=== PATIENT | male | born 1970 | race Caucasian/White ===

== ENCOUNTER 2018-04-01 15:59 | Inpatient (IN) ==
[2018-04-01] MEDS ORDERED: ZOFRAN INJ 4 MG VIAL IVP ONE (16:30)
[2018-04-01] MEDS ORDERED: ZOFRAN INJ 4 MG VIAL ONE (16:32)
[2018-04-01] MEDS: NS 1000 ML 1,000 ML IV SCH ×2 (16:37→18:40)
[2018-04-01 16:47] LABS: EOSINOPHILS # (AUTO) 0.1 x10^3/uL (0.0-0.2); RED CELL DISTRIBUTION WIDTH 14.1 % (11.6-16.5)
--- NOTE | 2018-04-01 16:50 | DR.EXTPAIN ---
HPI - Time seen Time seen: 16:38 - PCP Primary Care Physician: marcellus - Complaint/Symptoms Chief Complaint Doctor Comments: Onset of epigastric pain since this a.m. It was described as throbbing in nature. He rated this as a 10 over 10 at its most intense. He was nauseous. There has been no trauma to the abdomen. He gave a hx. of pancreatitis and triglyceridemia x > 18 hrs. At the time I'm seeing him, he states that he is pain free. Chief Complaint:: pt stated he has had pancreatitis before and he stated this morning he started hurting again and thinks it has come back. - Nurses notes reviewed Nurses Notes Review: Yes - Source History Provided: Patient - Mode of arrival Mode of Arrival: Ambulatory - Timing Onset of Chief Complaint: 04/01/18 PMH - PMH Past Medical History: Yes Past Medical History: Diabetes, Dyslipidemia, Hypertension Past Surgical History: No - Family History History of Family Medical Conditions: Yes Family Medical History: Diabetes Mellitus - Social History Does patient currently use any type of tobacco product: No Have you used tobacco products in the last 12 months: No Type of Tobacco Use: None Does any household member use tobacco: No Alcohol Use: Rarely Do you use any recreational Drugs:: No Lives With: Family Lives Where: Home - infectious screening In the last 2 months have you had wt loss of >10#?: NO Have you had fever, night sweats or hemotysis?: No Have you traveled outside the country in the last 6 months?: No Isolation: Standard ROS - Review of Systems Constitutional: No Symptoms Reported Eyes: No Symptoms Reported ENTM: No Symptoms Reported Respiratoy: No Symptoms Reported Cardiovascular: No Symptoms Reported Gastrointestinal/Abdominal: Abdominal Pain (epigastric ), Nausea Genitourinary: No Symptoms Reported Neurological: No Symptoms Reported Musculoskeletal: No Symptoms Reported Integumentary: No Symptoms Reported Hematologic/Lymphatic: No Symptoms Reported Endocrine: No Symptoms Reported Psychiatric: No Symptoms Reported All Other Systems: Reviewed and Negative PE - General Limitations: No Limitations General Appearance: Alert, In No Apparent Distress - Head Head Exam: Normal Inspection - Eyes Eye exam: Normal Appearance - ENT ENT Exam: Normal Exam - Neck Neck Exam: Normal Inspection - Chest Chest Inspection: Normal Inspection - Respiratory Respiratory Exam: Normal Lung Sounds Bilat - Cardiovascular Cardiovascular Exam: Regular Rate, Normal Rhythm, Normal Heart Sounds, +S1, +S2 - Abdominal Exam Abdominal Exam: Normal Inspection, Normal Bowel Sounds, Soft - Extremities Extremities Exam: Normal Inspection - Back Back Exam: Normal Inspection - Neurological Neurological Exam: Alert, Oriented X3, CN II-XII Intact - Psychiatric Psychiatric Exam: Normal Affect, Normal Mood - Skin Skin Exam: Warm, Dry, Intact, Normal Color - Vital Signs Vitals: Temperature 98.3 F Pulse Rate 107 Respiratory Rate 18 Blood Pressure [Right Arm] 115/68 Blood Pressure [Left Arm] 145/84 Blood Pressure 113/76 O2 Sat by Pulse Oximetry 96 ROR - Labs Reviewed Result Diagrams: 04/01/18 16:30 04/01/18 16:30 - Labs Reviewed Laboratory: WBC 13.8 X10^3/uL (3.6-10.0) H 04/01/18 16:30 RBC 5.08 X10^6/uL (4.7-6.0) 04/01/18 16:30 Hgb 15.2 g/dL (13.5-18.0) 04/01/18 16:30 Hct 40.7 % (42.0-54.0) L 04/01/18 16:30 MCV 80.0 fL (80.0-100.0) 04/01/18 16:30 MCH 29.9 pg (27.0-34.0) 04/01/18 16:30 MCHC 37.4 g/dL (33.0-35.0) H 04/01/18 16:30 RDW 14.1 % (11.6-16.5) 04/01/18 16:30 Plt Count 267 X10^3/uL (150.0-450.0) 04/01/18 16:30 Plt Count Comment Adequate (ADEQUATE) 04/01/18 16:30 MPV 9.1 fL (7.4-11.0) 04/01/18 16:30 Neut % (Auto) 76.4 % (42.0-75.0) H 04/01/18 16:30 Lymph % (Auto) 17.9 % (21.0-51.0) L 04/01/18 16:30 [place] % (Auto) 4.4 % (0.0-13.0) 04/01/18 16:30 Eos % (Auto) 0.5 % (0.9-2.9) L 04/01/18 16:30 Baso % (Auto) 0.8 % (0.2-1.0) 04/01/18 16:30 Neut # (Auto) 10.6 x10^3/uL (2.2-4.8) H 04/01/18 16:30 Lymph # (Auto) 2.5 X10^3/uL (1.3-2.9) 04/01/18 16:30 [place] # (Auto) 0.6 x10^3/uL (0.3-0.8) 04/01/18 16:30 Eos # (Auto) 0.1 x10^3/uL (0.0-0.2) 04/01/18 16:30 Baso # (Auto) 0.1 X10^3/uL (0.0-0.1) 04/01/18 16:30 Absolute Nucleated RBC 0.2 /100WBC 04/01/18 16:30 Plt Morphology Comment Normal (NORMAL) 04/01/18 16:30 RBC Morphology Abnormal (NORMAL) 04/01/18 16:30 Anisocytosis 1+ A 04/01/18 16:30 Macrocytosis 2+ A 04/01/18 16:30 Sodium 122 mmol/L (136-145) L* 04/01/18 16:30 Corrected Sodium 134 mmol/L (136-145) L 04/01/18 16:30 Potassium 4.6 mmol/L (3.5-5.1) 04/01/18 16:30 Chloride 87 mmol/L (98-107) L 04/01/18 16:30 Carbon Dioxide 24.9 mmol/L (21-32) 04/01/18 16:30 BUN 10 mg/dL (7-18) 04/01/18 16:30 Creatinine 1.25 mg/dL (0.70-1.30) 04/01/18 16:30 Est GFR (MDRD) Af Amer > 60 (>60) 04/01/18 16:30 Est GFR (MDRD) Non-Af > 60 (>60) 04/01/18 16:30 Glucose 585 mg/dL (65-99) H* 04/01/18 16:30 Calcium 9.2 mg/dL (8.5-10.1) 04/01/18 16:30 Corrected Calcium 10.3 mg/dL (8.5-10.1) H 04/01/18 16:30 Total Bilirubin 2.20 mg/dL (0.2-1.0) H 04/01/18 16:30 AST 20.4 Units/L (15-37) 04/01/18 16:30 ALT 33.6 Units/L (12-78) 04/01/18 16:30 Alkaline Phosphatase 69 Units/L (46-116) 04/01/18 16:30 Total Protein 6.8 g/dL (6.4-8.2) 04/01/18 16:30 Albumin 2.6 g/dL (3.4-5.0) L 04/01/18 16:30 Globulin 4.2 g/dL (2.5-4.5) 04/01/18 16:30 Albumin/Globulin Ratio 0.6 Ratio (1.1-2.1) L 04/01/18 16:30 Amylase 93 Units/L (25-115) 04/01/18 16:30 Lipase 1903 Units/L (73-393) H 04/01/18 16:30 - Diagnosis Discharge Problem: Pancreatitis, Hypertriglyceridemia, Type 2 diabetes mellitus, uncontrolled, Hyponatremia - Discharge Plan Disposition: ADMITTED INPATIENT Condition: Stable - Follow ups/Referrals Follow ups/Referrals: CAMILLE BECERRIL [Primary Care Provider] - 3 days - Instructions Instructions: Acute Pancreatitis
[2018-04-01 17:14] LABS: LIPASE 1903 Units/L (73-393)
[2018-04-01 17:26] LABS: BASOPHILS # (AUTO) 0.1 X10^3/uL (0.0-0.1); BASOPHILS % (AUTO) 0.8 % (0.2-1.0); EOSINOPHILS % (AUTO) 0.5 % (0.9-2.9); HEMATOCRIT 40.7 % (42.0-54.0); HEMOGLOBIN 15.2 g/dL (13.5-18.0); LYMPHOCYTES # (AUTO) 2.5 X10^3/uL (1.3-2.9); LYMPHOCYTES % (AUTO) 17.9 % (21.0-51.0); MEAN CORPUSCULAR HEMOGLOBIN 29.9 pg (27.0-34.0); MEAN CORPUSCULAR HGB CONC 37.4 g/dL (33.0-35.0); MEAN PLATELET VOLUME 9.1 fL (7.4-11.0); MONOCYTES # (AUTO) 0.6 x10^3/uL (0.3-0.8); MONOCYTES % (AUTO) 4.4 % (0.0-13.0); NEUTROPHILS # (AUTO) 10.6 x10^3/uL (2.2-4.8); NEUTROPHILS % (AUTO) 76.4 % (42.0-75.0); PLATELET COUNT 267 X10^3/uL (150.0-450.0); RED BLOOD COUNT 5.08 X10^6/uL (4.7-6.0); WHITE BLOOD COUNT 13.8 X10^3/uL (3.6-10.0)
[2018-04-01 17:40] LABS: eGFR NON BLACK RACES > 60 (>60)
[2018-04-01] MEDS ORDERED: DILAUDID INJ IVP ONE (17:42)
[2018-04-01] MEDS ORDERED: DILAUDID INJ ONE (17:43)
[2018-04-01 17:48] LABS: AMYLASE 93 Units/L (25-115)
[2018-04-01 17:49] LABS: ALBUMIN 2.6 g/dL (3.4-5.0); ALKALINE PHOSPHATASE 69 Units/L (46-116); BLOOD UREA NITROGEN 10 mg/dL (7-18)
[2018-04-01 17:51] LABS: CHLORIDE 87 mmol/L (98-107); COR NA(FOR HYPERGLY) 134 mmol/L (136-145)
[2018-04-01 17:55] LABS: SODIUM 122 mmol/L (136-145)
[2018-04-01] MEDS ORDERED: HumuLIN R SUBCUT ONE (18:05)
[2018-04-01] MEDS ORDERED: HumuLIN R ONE (18:06)
[2018-04-01 18:15] LABS: PLATELET MORPHOLOGY COMMENT NORMAL (NORMAL)
[2018-04-01 18:16] LABS: ANISOCYTOSIS 1+
[2018-04-01 18:34] LABS: CARBON DIOXIDE 24.9 mmol/L (21-32)
[2018-04-01 18:36] LABS: COR CA(FOR HYPOALB) 10.3 mg/dL (8.5-10.1)
[2018-04-01 18:39] LABS: ALANINE AMINOTRANSFERASE 33.6 Units/L (12-78); ASPARTATE AMINO TRANSFERASE 20.4 Units/L (15-37); CALCIUM 9.2 mg/dL (8.5-10.1); CREATININE 1.25 mg/dL (0.70-1.30)
[2018-04-01 18:40] LABS: TOTAL PROTEIN 6.8 g/dL (6.4-8.2)
[2018-04-01] MEDS ORDERED: SNACK - Diabetic Appropriate PO SCH (20:00)
[2018-04-01] MEDS ORDERED: ZOFRAN INJ 4 MG VIAL IVP PRN (20:46)
[2018-04-01] MEDS ORDERED: HumuLIN R SUBCUT PRN (20:46)
[2018-04-01] MEDS ORDERED: PRAVACHOL PO SCH (21:00)
[2018-04-01] MEDS: DILAUDID INJ IVP PRN (23:57)
[2018-04-02] MEDS: NS 1000 ML 1,000 ML IV SCH ×2 (01:43→03:50)
[2018-04-02 06:11] VITALS: BMI 31.5
[2018-04-02] MEDS ORDERED: JANUVIA PO SCH (07:00)
[2018-04-02] MEDS ORDERED: GLUCOPHAGE PO SCH (07:00)
[2018-04-02] MEDS ORDERED: PATIENT'S HOME MEDICATION (Sitagliptin-Metformin [Janumet] 1 TAB) PO SCH (07:00)
[2018-04-02 07:25] LABS: BASOPHILS # (AUTO) 0.1 X10^3/uL (0.0-0.1); BASOPHILS % (AUTO) 1.4 % (0.2-1.0); EOSINOPHILS # (AUTO) 0.1 x10^3/uL (0.0-0.2); HEMATOCRIT 35.3 % (42.0-54.0); HEMOGLOBIN 12.6 g/dL (13.5-18.0); LYMPHOCYTES % (AUTO) 31.9 % (21.0-51.0); MEAN CORPUSCULAR HEMOGLOBIN 28.6 pg (27.0-34.0); MEAN CORPUSCULAR HGB CONC 35.6 g/dL (33.0-35.0); MEAN CORPUSCULAR VOLUME 80.3 fL (80.0-100.0); MONOCYTES # (AUTO) 0.6 x10^3/uL (0.3-0.8); MONOCYTES % (AUTO) 6.1 % (0.0-13.0); NEUTROPHILS # (AUTO) 5.6 x10^3/uL (2.2-4.8); NEUTROPHILS % (AUTO) 59.6 % (42.0-75.0); PLATELET COUNT 192 X10^3/uL (150.0-450.0); RED BLOOD COUNT 4.39 X10^6/uL (4.7-6.0); RED CELL DISTRIBUTION WIDTH 14.7 % (11.6-16.5); WHITE BLOOD COUNT 9.3 X10^3/uL (3.6-10.0)
[2018-04-02] MEDS: DILAUDID INJ IVP PRN (07:32)
[2018-04-02 07:38] LABS: PLATELET MORPHOLOGY COMMENT NORMAL (NORMAL)
[2018-04-02 07:39] LABS: ANISOCYTOSIS SLIGHT
[2018-04-02 08:09] LABS: BLOOD UREA NITROGEN 13 mg/dL (7-18); CARBON DIOXIDE 18.1 mmol/L (21-32); CHLORIDE 93 mmol/L (98-107); SODIUM 126 mmol/L (136-145)
[2018-04-02 08:10] LABS: COR NA(FOR HYPERGLY) 133 mmol/L (136-145)
[2018-04-02 08:20] LABS: LIPASE 825 Units/L (73-393)
[2018-04-02] MEDS ORDERED: TRICOR TAB 160 MG PO SCH (09:00)
[2018-04-02] MEDS ORDERED: NORVASC TAB 10 MG PO SCH (09:00)
[2018-04-02 09:34] LABS: eGFR NON BLACK RACES > 60 (>60)
[2018-04-02 09:36] LABS: AMYLASE 49.2 Units/L (25-115); CREATININE 1.14 mg/dL (0.70-1.30)
[2018-04-02 12:35] VITALS: BP 123/58
[2018-04-02] MEDS: ZESTORETIC 20/25 MG PO SCH ×2 (12:36→12:38)
== END 2018-04-02 13:03 | disposition left against medical advice (07) | DRG 439 ==
LOC: ER 15:59 → MED/SURG 20:04
PROVIDERS: ADMIT Obstetrics & Gynecology Obstetrics; ATTEND Internal Medicine
DX: K85.80 Other acute pancreatitis without necrosis or infection; E11.65 Type 2 diabetes mellitus with hyperglycemia; E87.1 Hypo-osmolality and hyponatremia; E78.1 Pure hyperglyceridemia
CPT/HCPCS: 36415; 80048; 80053; 82150; 83690; 85025; 96365; 96367; 96372; 96374; 96375; 99282; 99284; A4216; A4222; J1170; J1815; J2405; J7030

== ENCOUNTER 2019-01-23 00:35 | Inpatient (IN) ==
[2019-01-23] MEDS ORDERED: NS 1000 ML 1,000 ML IV ONE (00:46)
[2019-01-23] MEDS ORDERED: ZOFRAN INJ 4 MG VIAL IVP ONE (00:46)
[2019-01-23] MEDS ORDERED: NS 1000 ML 1,000 ML ONE ×2 (00:47→03:53)
[2019-01-23] MEDS ORDERED: ZOFRAN INJ 4 MG VIAL ONE (00:48)
[2019-01-23] MEDS ORDERED: NUBAIN INJ 10 ONE (00:58)
[2019-01-23] MEDS ORDERED: NUBAIN INJ 10 IVP ONE (00:59)
--- NOTE | 2019-01-23 00:59 | DR.GENAD ---
HPI Time Seen Time Seen by Provider: 01/23/19 00:47 HPI Comment HPI Comment: 48 y/o male with epigastric abdominal pain since late evening on 01/21/19. It was intermittent but got steady this evening. Characterized as sharp or pressure like. He has nausea or vomiting. e relates a hx. of pancreatitis, DM type 2. He denies abdominal surgery or trauma. PMH PMH Past Surgical History: No Family History Family Medical History: Diabetes Mellitus Social History Do you use any recreational Drugs:: No ROS Review of Systems Constitutional: No Symptoms Reported Eyes: No Symptoms Reported ENTM: No Symptoms Reported Respiratoy: No Symptoms Reported Cardiovascular: No Symptoms Reported Gastrointestinal/Abdominal: Abdominal Pain (epigastric location), Nausea and Vomiting Genitourinary: No Symptoms Reported Neurological: No Symptoms Reported Musculoskeletal: No Symptoms Reported Integumentary: No Symptoms Reported Hematologic/Lymphatic: No Symptoms Reported Endocrine: No Symptoms Reported Psychiatric: No Symptoms Reported PE Vital Signs Vitals: Temperature 98.8 F Pulse Rate [Left] 77 Pulse Rate 77 Respiratory Rate 18 Blood Pressure [Right Arm] 123/58 Blood Pressure [Left Arm] 137/80 Blood Pressure 137/80 O2 Sat by Pulse Oximetry 99 General Limitations: No Limitations General Appearance: Alert and In No Apparent Distress Head Head Exam: Normal Inspection, Atraumatic and Normocephalic Eyes Eye exam: Normal Appearance and EOMI ENT ENT Exam: Normal Exam, Normal Oropharynx and Mucous Membranes Moist Neck Neck Exam: Normal Inspection, Full ROM and Trachea Midline Chest Chest Inspection: Normal Inspection and Symmetric Chest Wall Rise Respiratory Respiratory Exam: Normal Lung Sounds Bilat Cardiovascular Cardiovascular Exam: Regular Rate, Normal Rhythm, +S1 and +S2 Abdominal Exam Abdominal Exam: Normal Inspection, Normal Bowel Sounds and Soft Abdominal Tenderness: Epigastrium Extremities Extremities Exam: Normal Inspection and Full ROM Back Back Exam: Normal Inspection Neurologic Neurological Exam: Alert and Oriented X3 Psychiatric Psychiatric Exam: Normal Affect and Normal Mood Skin Skin Exam: Warm, Dry and Normal Color COURSE Reevaluation 1st: Improved Education/Counseling Education/Counseling: Patient, Family, Education and Counseling Educated On: Treatment, Diagnosis, Prognosis and Needs for Follow Up ROR Labs Reviewed Result Diagrams: 01/23/19 00:54 Laboratory: Sodium 135 mmol/L (136-145) L 01/23/19 00:54 Corrected Sodium 142 mmol/L (136-145) 01/23/19 00:54 Potassium 3.5 mmol/L (3.5-5.1) 01/23/19 00:54 Chloride 96 mmol/L (98-107) L 01/23/19 00:54 Carbon Dioxide 21.7 mmol/L (21-32) 01/23/19 00:54 BUN 16 mg/dL (7-18) 01/23/19 00:54 Creatinine 1.17 mg/dL (0.70-1.30) 01/23/19 00:54 Est GFR (MDRD) Af Amer > 60 (>60) 01/23/19 00:54 Est GFR (MDRD) Non-Af > 60 (>60) 01/23/19 00:54 Glucose 376 mg/dL (65-99) H 01/23/19 00:54 Calcium 8.8 mg/dL (8.5-10.1) 01/23/19 00:54 Corrected Calcium TNP 01/23/19 00:54 Total Bilirubin 0.60 mg/dL (0.2-1.0) 01/23/19 00:54 AST 96 Units/L (15-37) H 01/23/19 00:54 Alkaline Phosphatase 79 Units/L (46-116) 01/23/19 00:54 Albumin 3.8 g/dL (3.4-5.0) 01/23/19 00:54 Globulin 5.7 g/dL (2.5-4.5) H 01/23/19 00:54 Albumin/Globulin Ratio 0.7 Ratio (1.1-2.1) L 01/23/19 00:54 Amylase 729 Units/L (25-115) H 01/23/19 00:54 Lipase 03069 Units/L (73-393) H 01/23/19 00:54 Diagnosis Discharge Problem: Acute pancreatitis Qualifiers: Pancreatitis type: unspecified pancreatitis type Acute pancreatitis complication: unspecified Qualified Code(s): K85.90 - Acute pancreatitis without necrosis or infection, unspecified
[2019-01-23 01:13] VITALS: BMI 32.1
[2019-01-23 01:23] LABS: ALBUMIN 3.8 g/dL (3.4-5.0); ALKALINE PHOSPHATASE 79 Units/L (46-116); BLOOD UREA NITROGEN 16 mg/dL (7-18); CALCIUM 8.8 mg/dL (8.5-10.1); CARBON DIOXIDE 21.7 mmol/L (21-32); CHLORIDE 96 mmol/L (98-107); CREATININE 1.17 mg/dL (0.70-1.30); SODIUM 135 mmol/L (136-145); eGFR NON BLACK RACES > 60 (>60)
[2019-01-23 01:36] LABS: ASPARTATE AMINO TRANSFERASE 96 Units/L (15-37); COR NA(FOR HYPERGLY) 142 mmol/L (136-145)
[2019-01-23 01:55] LABS: LIPASE 22184 Units/L (73-393)
[2019-01-23 01:56] LABS: AMYLASE 729 Units/L (25-115)
[2019-01-23] MEDS ORDERED: DILAUDID INJ IVP PRN (03:38)
[2019-01-23] MEDS ORDERED: PHENERGAN INJ 25 MG IM PRN (03:38)
[2019-01-23] MEDS: NS 1000 ML 1,000 ML IV SCH ×3 (03:56→23:28)
[2019-01-23] MEDS ORDERED: NS 100 ML IV 100 ML IV SCH (04:00)
[2019-01-23 04:02] LABS: AMYLASE 413 Units/L (25-115)
[2019-01-23] MEDS ORDERED: DILAUDID INJ ONE (04:10)
[2019-01-23 04:14] LABS: LIPASE 10446 Units/L (73-393)
[2019-01-23 04:37] LABS: BASOPHILS # (AUTO) 0.1 X10^3/uL (0.0-0.1); EOSINOPHILS # (AUTO) 0.1 x10^3/uL (0.0-0.2)
[2019-01-23 04:49] LABS: BASOPHILS % (AUTO) 0.8 % (0.2-1.0); HEMATOCRIT 45.3 % (42.0-54.0); HEMOGLOBIN 15.2 g/dL (13.5-18.0); LYMPHOCYTES # (AUTO) 4.3 X10^3/uL (1.3-2.9); LYMPHOCYTES % (AUTO) 28.3 % (21.0-51.0); MEAN CORPUSCULAR HEMOGLOBIN 27.7 pg (27.0-34.0); MEAN CORPUSCULAR HGB CONC 33.6 g/dL (33.0-35.0); MEAN CORPUSCULAR VOLUME 82.5 fL (80.0-100.0); MEAN PLATELET VOLUME 10.4 fL (7.4-11.0); MONOCYTES # (AUTO) 1.1 x10^3/uL (0.3-0.8); MONOCYTES % (AUTO) 6.9 % (0.0-13.0); NEUTROPHILS # (AUTO) 9.6 x10^3/uL (2.2-4.8); PLATELET COUNT 251 X10^3/uL (150.0-450.0); RED BLOOD COUNT 5.49 X10^6/uL (4.7-6.0); RED CELL DISTRIBUTION WIDTH 14.3 % (11.6-16.5); WHITE BLOOD COUNT 15.3 X10^3/uL (3.6-10.0)
[2019-01-23] MEDS: HumuLIN R SUBCUT PRN ×3 (06:05→17:15)
[2019-01-23 07:01] LABS: TOTAL PROTEIN 7.3 g/dL (6.4-8.2)
[2019-01-23 07:02] LABS: ALANINE AMINOTRANSFERASE 31 Units/L (12-78)
[2019-01-23 08:48] LABS: CHOL/HDL RATIO 10.9 (0.0-5.0)
--- NOTE | 2019-01-23 12:17 | US ---
Exam: Right upper quadrant abdominal ultrasound History: 48-year-old male with abdominal pain Comparison: None Findings: Fatty changes are present in the liver. Borderline hepatomegaly is noted as well. Portal vein is patent with normal hepatopetal flow. Gallbladder is normal appearing with no cholelithiasis, gallbladder wall thickening, or localized tenderness. Common bile duct measures 2 mm in diameter. Right kidney is 11.6 cm in length. No hydronephrosis, echogenic calculi, or renal mass is seen on the right. IVC is patent. Pancreas is not well seen because of overlying bowel gas. Impression: 1. Borderline hepatomegaly. Fatty changes are also noted in the liver. 2. No cholelithiasis. 3. Pancreas not well seen because of overlying bowel gas Reported By:
[2019-01-23] MEDS ORDERED: TYLENOL 325 MG TAB PO PRN (13:14)
[2019-01-23] MEDS ORDERED: TYLENOL 325 MG TAB PO ONE (13:23)
[2019-01-23 13:34] LABS: APPEARANCE,URINE SLIGHTLY HAZY (CLEAR); BILIRUBIN,URINE NEGATIVE (NEGATIVE); BLOOD/HEMOGLOBIN,URINE NEGATIVE (NEGATIVE); COLOR,URINE YELLOW (YELLOW); GLUCOSE, URINE 4+ (NEGATIVE); KETONES,URINE 1+ (NEGATIVE); LEUKOCYTE ESTERASE ,URINE NEGATIVE (NEGATIVE); NITRITES,URINE NEGATIVE (NEGATIVE); PH,URINE 6.5 (5.0 - 8.0); PROTEIN,URINE 1+ (NEGATIVE); UROBILINOGEN,URINE NORMAL (NORMAL)
--- NOTE | 2019-01-23 13:36 | DR.H&P ---
H&P - History & Physical for Day of: H&P Date: 01/23/19 - Chief Complaint Chief Complaint: ABDOMINAL PAIN, N/V - History of Present Illness History of Present Illness: 48 y/o WM, ER ADMISSION AFTER PRESENTING with epigastric abdominal pain since late evening on 01/21/19. It was intermittent but got steady this evening. Characterized as sharp or pressure like. He has nausea or vomiting. e relates a hx. of pancreatitis, DM type 2. He denies abdominal surgery or trauma. - Past Medical History Past Medical History: Diabetes, Dyslipidemia, Hypertension - Past Surgical History Surgical History: No History - Family History Family Medical History: Diabetes Mellitus - Social History Does patient currently use any type of tobacco product: No Have you used tobacco products in the last 12 months: No Does any household member use tobacco: No Alcohol Use: None Drug Use: None - Medications Home Medications: Penicillins Allergy (Verified 04/01/18 16:00) CONTINUE taking the following medications lisinopril-hydrochlorothiazide 20 mg PO DAILY 01/23/19 [History] metformin 1,000 mg PO BID 01/23/19 [History] pravastatin 80 mg PO HS 01/23/19 [History] - Review of Systems Constitutional: No Symptoms Reported, Weakness Eyes: No Symptoms Reported ENT: No Symptoms Reported Respiratory: No Symptoms Reported Cardiovascular: No Symptoms Reported Gastrointestinal: Nausea, Vomiting, Abdominal Pain Musculoskeletal: No Symptoms Reported Skin: No Symptoms Reported Neurological: No Symptoms Reported - Physical Exam Vital Signs: Temperature 98.5 F Pulse Rate [Left] 74 Pulse Rate 77 Respiratory Rate 18 Blood Pressure [Right Arm] 134/86 Blood Pressure [Left Arm] 128/79 Blood Pressure 137/80 O2 Sat by Pulse Oximetry 96 Oriented: Normal Ear: Normal Nose: Normal Throat: Normal Respiratory: Clear Throughout Cardiovascular: Tachycardia. negative: Edema : Normal Auscultation: Bowel Sounds: Normal Tenderness: RUQ, LLQ, Epigastric Skin: Normal Musculoskeletal: Normal Psychiatric: Anxiety Mood Description: Calm Affect: Anxious Speech Pattern: Clear, Appropriate - Assessment/Plan (1) Abdominal pain Status: Acute Plan: ADMIT, NPO. GBUS, HIDA, CT ABD PELVIS WITH CONTRAST. GENTLE IV HYDRATION, I & OS, EKG ON ADMISSION. BS CONTROL, FLP, A1C, PAIN AND NAUSEA CONTROL. REPEAT AM LABS, BP CONTROL (2) Acute pancreatitis Qualifiers: Pancreatitis type: other Acute pancreatitis complication: no infection or necrosis Qualified Code(s): K85.80 - Other acute pancreatitis without necrosis or infection Status: Acute (3) Hypertension Status: Acute (4) Hyperglycemia due to type 2 diabetes mellitus Qualifiers: Diabetes mellitus group home insulin use: with group home use Qualified Code(s): E11.65 - Type 2 diabetes mellitus with hyperglycemia; Z79.4 - primary clinician (current) use of insulin Status: Acute (5) Hypertriglyceridemia Status: Acute - Allergies Allergies/Adverse Reactions: Allergies Allergy/AdvReac Type Severity Reaction Status Date / Time Penicillins Allergy Verified 04/01/18 16:00
[2019-01-23 13:43] LABS: BACTERIA,URINE NEGATIVE /HPF (NEGATIVE); MUCUS,URINE RARE /HPF (NEGATIVE); RBC,URINE 0-2 /HPF (NONE SEEN); SQUAMOUS EPITHELIAL CELL,UR NEGATIVE /HPF (NEGATIVE)
[2019-01-23] MEDS ORDERED: NS 100 ML IV 100 ML ONE (14:55)
--- NOTE | 2019-01-23 15:31 | CT ---
HISTORY: Abdominal pain, elevated amylase Study: CT abdomen and pelvis with contrast Comparison: None Technique: Multiple axial images of the abdomen and pelvis were obtained with IV contrast. Oral contrast was administered. Dose reduction techniques including Automated Exposure Control (AEC) and adjustment of mA and kV were utilized. Findings: The visualized portions of the lung bases are clear. There is fatty infiltration of the liver. The spleen, kidneys, and adrenal glands are unremarkable with incidental note of simple left renal cysts. No gallstones or biliary obstruction identified. There is inflammatory stranding and fluid around the tail and body of the pancreas compatible with acute pancreatitis. No evidence of parenchymal to [place] sys, venous thrombosis or pseudocyst formation. No free intraperitoneal air. No evidence of intestinal obstruction or inflammation. Oral contrast reaches the distal colon. The appendix is normal. No ascites or abscess identified. The soft tissues and osseous structures are unremarkable. The vascular structures are within normal limits for age. No pathologically enlarged lymph nodes are identified. Normal urinary bladder. IMPRESSION: 1. Findings compatible with acute pancreatitis involving the body and tail of the pancreas. No evidence of necrosis or pseudocyst formation. 2. No gallstones are identified. 3. Mild hepatic steatosis. 4. Simple left renal cysts. Reported By:
[2019-01-24] MEDS: NS 1000 ML 1,000 ML IV SCH ×4 (00:16→20:35)
[2019-01-24 05:49] LABS: BASOPHILS % (AUTO) 0.6 % (0.2-1.0); EOSINOPHILS # (AUTO) 0.2 x10^3/uL (0.0-0.2); EOSINOPHILS % (AUTO) 2.3 % (0.9-2.9); HEMATOCRIT 37.9 % (42.0-54.0); HEMOGLOBIN 13.3 g/dL (13.5-18.0); LYMPHOCYTES # (AUTO) 2.9 X10^3/uL (1.3-2.9); LYMPHOCYTES % (AUTO) 36.6 % (21.0-51.0); MEAN CORPUSCULAR HEMOGLOBIN 28.2 pg (27.0-34.0); MEAN CORPUSCULAR HGB CONC 35.2 g/dL (33.0-35.0); MEAN CORPUSCULAR VOLUME 80.2 fL (80.0-100.0); MEAN PLATELET VOLUME 8.6 fL (7.4-11.0); MONOCYTES # (AUTO) 0.6 x10^3/uL (0.3-0.8); MONOCYTES % (AUTO) 7.9 % (0.0-13.0); NEUTROPHILS # (AUTO) 4.2 x10^3/uL (2.2-4.8); NEUTROPHILS % (AUTO) 52.6 % (42.0-75.0); PLATELET COUNT 223 X10^3/uL (150.0-450.0); RED BLOOD COUNT 4.72 X10^6/uL (4.7-6.0); RED CELL DISTRIBUTION WIDTH 14.7 % (11.6-16.5)
[2019-01-24 06:22] LABS: ALANINE AMINOTRANSFERASE 22 Units/L (12-78); ALBUMIN 2.9 g/dL (3.4-5.0); ALKALINE PHOSPHATASE 46 Units/L (46-116); ASPARTATE AMINO TRANSFERASE 12 Units/L (15-37); BLOOD UREA NITROGEN 12 mg/dL (7-18); CALCIUM 8.4 mg/dL (8.5-10.1); CARBON DIOXIDE 22.4 mmol/L (21-32); CHLORIDE 104 mmol/L (98-107); COR CA(FOR HYPOALB) 9.3 mg/dL (8.5-10.1); COR NA(FOR HYPERGLY) 140 mmol/L (136-145); CREATININE 0.87 mg/dL (0.70-1.30); SODIUM 138 mmol/L (136-145); TOTAL PROTEIN 6.5 g/dL (6.4-8.2); eGFR NON BLACK RACES > 60 (>60)
[2019-01-24 07:01] LABS: AMYLASE 48 Units/L (25-115); LIPASE 706 Units/L (73-393)
--- NOTE | 2019-01-24 14:31 | NM ---
HISTORY: RUQ pain, nausea. Pancreatitis. Technique: Multiple scintigraphic images of the abdomen were obtained the intravenous administration of 5.5 mCi of technetium labeled Choletec. Comparison: Most recent abdominal ultrasound exam. Following distention of the gallbladder with radiotracer a bottle of Ensure was given. An estimated gallbladder ejection fraction was calculated based on this physiologic response. Findings: Homogeneous uptake of radiotracer is seen throughout the liver. The intrabiliary ductal system is observed normally. The common hepatic and common bile duct grossly appear unremarkable with normal biliary-bowel transit. The gallbladder is observed to fill normally without evidence for acute cholecystitis. After the administration of ensure, however, an abnormally low gallbladder ejection fraction of 11% (normal > 35%) is observed. Although many etiologies (certain medications, cholangitis, pancreatitis, sepsis, etc.) can account for a low gallbladder ejection fraction, in the outpatient setting, the most common etiology is chronic cholecystitis. IMPRESSION: 1. Hepatobiliary imaging study demonstrates no evidence for hepatic dysfunction, acute cholecystitis, or biliary leak/biloma formation. 2. Low gallbladder ejection fraction of 11 %, as discussed in detail above. Reported By:
[2019-01-24] MEDS: HumuLIN R SUBCUT PRN ×2 (17:21→20:36)
--- NOTE | 2019-01-24 18:27 | PCM.PROG ---
Progress Note - Progress Note for Day of Date of Exam: 01/24/19 - Subjective Subjective: 48 WM ER ADMISSION WITH ACUTE PANCREATITIS. PT HAD GB US WITHOUT CHOLELITHIASIS. PT HAD CT ABD PELVIS CONFIRMING PANCREATITIS. PT HAS BEEN NPO WITH CO IMPROVING PAIN THIS AM, PT ASKING TO EAT. PT IS NPO FOR HIDA SCAN. AMYLASE 48, LIPASE 706 THIS AM. WILL STARTE CLEAR LIQUIDS TOLERATED POST HIDA, WILL CONSULT ANAID WITH ABNORMAL FINDINGS. - Past Medical Family Social History Past Med/Fam/Surg Hx: No changes since H&P Allergies: Allergies Penicillins Allergy (Verified 04/01/18 16:00) - Review of Systems ROS: No change since H&P - Vital Signs and I&O's Vital Signs: Temperature 98.7 F Pulse Rate [Right Brachial] 79 Pulse Rate [Left] 74 Pulse Rate 77 Respiratory Rate 18 Blood Pressure [Right Arm] 139/85 Blood Pressure [Left Arm] 128/79 Blood Pressure 137/80 O2 Sat by Pulse Oximetry 97 Intake and Output: Intake & Output 01/22/19 01/23/19 01/24/19 01/25/19 11:59 11:59 11:59 11:59 Intake Total 320 / 320 1650 / 1650 120 / 120 Output Total 0 / 0 250 / 250 Balance 320 / 320 1400 / 1400 120 / 120 - Physical Exam Oriented: Normal Ear: Normal Nose: Normal Throat: Normal Respiratory: Diminished Cardiovascular: Tachycardia. negative: Edema : Normal Auscultation: Bowel Sounds: Normal Tenderness: RUQ, LLQ, Epigastric Skin: Normal Musculoskeletal: Normal Psychiatric: Anxiety Mood Description: Calm Affect: Anxious Speech Pattern: Clear, Appropriate - Laboratory and Diagnostics Result Diagrams: 01/24/19 05:23 01/24/19 05:23 Labs: Laboratory WBC 8.0 X10^3/uL (3.6-10.0) 01/24/19 05:23 RBC 4.72 X10^6/uL (4.7-6.0) 01/24/19 05:23 Hgb 13.3 g/dL (13.5-18.0) L 01/24/19 05:23 Hct 37.9 % (42.0-54.0) L 01/24/19 05:23 MCV 80.2 fL (80.0-100.0) 01/24/19 05:23 MCH 28.2 pg (27.0-34.0) 01/24/19 05:23 MCHC 35.2 g/dL (33.0-35.0) H 01/24/19 05:23 RDW 14.7 % (11.6-16.5) 01/24/19 05:23 Plt Count 223 X10^3/uL (150.0-450.0) 01/24/19 05:23 MPV 8.6 fL (7.4-11.0) 01/24/19 05:23 Neut % (Auto) 52.6 % (42.0-75.0) 01/24/19 05:23 Lymph % (Auto) 36.6 % (21.0-51.0) 01/24/19 05:23 [place] % (Auto) 7.9 % (0.0-13.0) 01/24/19 05:23 Eos % (Auto) 2.3 % (0.9-2.9) 01/24/19 05:23 Baso % (Auto) 0.6 % (0.2-1.0) 01/24/19 05:23 Neut # (Auto) 4.2 x10^3/uL (2.2-4.8) 01/24/19 05:23 Lymph # (Auto) 2.9 X10^3/uL (1.3-2.9) 01/24/19 05:23 [place] # (Auto) 0.6 x10^3/uL (0.3-0.8) 01/24/19 05:23 Eos # (Auto) 0.2 x10^3/uL (0.0-0.2) 01/24/19 05:23 Baso # (Auto) 0.0 X10^3/uL (0.0-0.1) 01/24/19 05:23 Absolute Nucleated RBC 0.0 /100WBC 01/24/19 05:23 Sodium 138 mmol/L (136-145) 01/24/19 05:23 Corrected Sodium 140 mmol/L (136-145) 01/24/19 05:23 Potassium 3.5 mmol/L (3.5-5.1) 01/24/19 05:23 Chloride 104 mmol/L (98-107) 01/24/19 05:23 Carbon Dioxide 22.4 mmol/L (21-32) 01/24/19 05:23 BUN 12 mg/dL (7-18) 01/24/19 05:23 Creatinine 0.87 mg/dL (0.70-1.30) 01/24/19 05:23 Est GFR (MDRD) Af Amer > 60 (>60) 01/24/19 05:23 Est GFR (MDRD) Non-Af > 60 (>60) 01/24/19 05:23 Glucose 166 mg/dL (65-99) H 01/24/19 05:23 POC Glucose (mg/dL) 222 mg/dL (65-99) H 01/24/19 15:47 Hemoglobin A1c 11.0 % 01/23/19 07:53 Calcium 8.4 mg/dL (8.5-10.1) L 01/24/19 05:23 Corrected Calcium 9.3 mg/dL (8.5-10.1) 01/24/19 05:23 Total Bilirubin 0.50 mg/dL (0.2-1.0) 01/24/19 05:23 AST 12 Units/L (15-37) L 01/24/19 05:23 ALT 22 Units/L (12-78) 01/24/19 05:23 Alkaline Phosphatase 46 Units/L (46-116) 01/24/19 05:23 Total Protein 6.5 g/dL (6.4-8.2) 01/24/19 05:23 Albumin 2.9 g/dL (3.4-5.0) L 01/24/19 05:23 Globulin 3.6 g/dL (2.5-4.5) 01/24/19 05:23 Albumin/Globulin Ratio 0.8 Ratio (1.1-2.1) L 01/24/19 05:23 Triglycerides 1578 mg/dL (0-150) H 01/23/19 07:53 Cholesterol 239 mg/dL (0-200) H 01/23/19 07:53 LDL Cholesterol, Calc -99 mg/dL (0-100) L 01/23/19 07:53 HDL Cholesterol 22 mg/dL (40-60) L 01/23/19 07:53 Cholesterol/HDL Ratio 10.9 (0.0-5.0) H 01/23/19 07:53 Amylase 48 Units/L (25-115) 01/24/19 05:23 Lipase 706 Units/L (73-393) H 01/24/19 05:23 Specimen Type Clean catch urine 01/23/19 13:20 Urine Color Yellow (YELLOW) 01/23/19 13:20 Urine Appearance Slightly hazy (CLEAR) 01/23/19 13:20 Urine pH 6.5 (5.0 - 8.0) 01/23/19 13:20 Ur Specific [place] 1.015 (1.000-1.030) 01/23/19 13:20 Urine Protein 1+ (NEGATIVE) 01/23/19 13:20 Urine Glucose (UA) 4+ (NEGATIVE) 01/23/19 13:20 Urine Ketones 1+ (NEGATIVE) 01/23/19 13:20 Urine Occult Blood Negative (NEGATIVE) 01/23/19 13:20 Urine Nitrite Negative (NEGATIVE) 01/23/19 13:20 Urine Bilirubin Negative (NEGATIVE) 01/23/19 13:20 Urine Urobilinogen Normal (NORMAL) 01/23/19 13:20 Ur Leukocyte Esterase Negative (NEGATIVE) 01/23/19 13:20 Urine RBC 0-2 /HPF (NONE SEEN) 01/23/19 13:20 Urine WBC 0-2 /HPF (NONE SEEN) 01/23/19 13:20 Ur Squamous Epith Cells Negative /HPF (NEGATIVE) 01/23/19 13:20 Urine Bacteria Negative /HPF (NEGATIVE) 01/23/19 13:20 Urine Mucus Rare /HPF (NEGATIVE) 01/23/19 13:20 Ur Culture Indicated? No/not indicated 01/23/19 13:20 - Plan (1) Abdominal pain Status: Acute Plan: NPO. GBUS, HIDA, CT ABD PELVIS WITH CONTRAST ON ADMISSION. GENTLE IV HYDRATION, I & OS, EKG ON ADMISSION. BS CONTROL, FLP, A1C, PAIN AND NAUSEA CONTROL. REPEAT AM LABS, BP CONTROL (2) Acute pancreatitis Status: Acute Qualifiers: Pancreatitis type: other Acute pancreatitis complication: no infection or necrosis Qualified Code(s): K85.80 - Other acute pancreatitis without necrosis or infection (3) Hypertension Status: Acute (4) Hyperglycemia due to type 2 diabetes mellitus Status: Acute Qualifiers: Diabetes mellitus ferry terminal supervisor insulin use: with ferry terminal supervisor use Qualified Code(s): E11.65 - Type 2 diabetes mellitus with hyperglycemia; Z79.4 - senior care (current) use of insulin (5) Hypertriglyceridemia Status: Acute
[2019-01-25] MEDS: NS 1000 ML 1,000 ML IV SCH ×2 (00:19→04:26)
[2019-01-25] MEDS: HumuLIN R SUBCUT PRN (05:32)
[2019-01-25 06:16] LABS: BASOPHILS % (AUTO) 0.5 % (0.2-1.0); EOSINOPHILS # (AUTO) 0.1 x10^3/uL (0.0-0.2); EOSINOPHILS % (AUTO) 2.5 % (0.9-2.9); HEMATOCRIT 38.5 % (42.0-54.0); HEMOGLOBIN 13.4 g/dL (13.5-18.0); LYMPHOCYTES # (AUTO) 2.1 X10^3/uL (1.3-2.9); LYMPHOCYTES % (AUTO) 34.4 % (21.0-51.0); MEAN CORPUSCULAR HEMOGLOBIN 28.1 pg (27.0-34.0); MEAN CORPUSCULAR HGB CONC 34.9 g/dL (33.0-35.0); MEAN CORPUSCULAR VOLUME 80.4 fL (80.0-100.0); MEAN PLATELET VOLUME 8.6 fL (7.4-11.0); MONOCYTES # (AUTO) 0.5 x10^3/uL (0.3-0.8); MONOCYTES % (AUTO) 9.1 % (0.0-13.0); NEUTROPHILS # (AUTO) 3.2 x10^3/uL (2.2-4.8); NEUTROPHILS % (AUTO) 53.5 % (42.0-75.0); PLATELET COUNT 233 X10^3/uL (150.0-450.0); RED BLOOD COUNT 4.79 X10^6/uL (4.7-6.0); RED CELL DISTRIBUTION WIDTH 14.6 % (11.6-16.5); WHITE BLOOD COUNT 6.1 X10^3/uL (3.6-10.0)
[2019-01-25 06:27] LABS: ALANINE AMINOTRANSFERASE 23 Units/L (12-78); ALKALINE PHOSPHATASE 49 Units/L (46-116); AMYLASE 39 Units/L (25-115); ASPARTATE AMINO TRANSFERASE 12 Units/L (15-37); BLOOD UREA NITROGEN 8 mg/dL (7-18); CALCIUM 8.6 mg/dL (8.5-10.1); CARBON DIOXIDE 23.2 mmol/L (21-32); CHLORIDE 104 mmol/L (98-107); COR CA(FOR HYPOALB) 9.4 mg/dL (8.5-10.1); COR NA(FOR HYPERGLY) 141 mmol/L (136-145); CREATININE 0.87 mg/dL (0.70-1.30); LIPASE 811 Units/L (73-393); SODIUM 139 mmol/L (136-145); eGFR NON BLACK RACES > 60 (>60)
[2019-01-25] MEDS ORDERED: KLOR-CON PO PRN (07:39)
[2019-01-25] MEDS ORDERED: MICRO K EXTEN CAP 10 MEQ PO PRN (07:39)
[2019-01-25] MEDS ORDERED: POTASSIUM CHL 40 MEQ/NS 0.45% 500 ML IV PRN (07:39)
[2019-01-25] MEDS ORDERED: POTASSIUM CHL 60 MEQ/NS 0.45% 500 ML IV PRN (07:39)
[2019-01-25] MEDS ORDERED: POTASSIUM CHLORIDE LIQ 20 MEQ UDC PO PRN (07:39)
[2019-01-25] MEDS ORDERED: K-DUR TAB 20 MEQ PO PRN (07:39)
[2019-01-25] MEDS ORDERED: K-RIDER 10 MEQ/NS 100 ML 10 MEQ/100 ML BAG IV PRN (07:39)
[2019-01-25] MEDS ORDERED: MAG-OX TAB ONE (08:44)
[2019-01-25 09:35] VITALS: BP 130/94
[2019-01-25] MEDS ORDERED: MAG-OX TAB PO SCH (17:00)
== END 2019-01-25 09:20 | disposition home or self-care (01) | DRG 440 ==
LOC: ER 00:37 → MED/SURG 03:17
PROVIDERS: ADMIT Obstetrics & Gynecology Obstetrics; ATTEND Internal Medicine
DX: E78.1 Pure hyperglyceridemia; K82.8 Other specified diseases of gallbladder; R10.11 Right upper quadrant pain; K85.90 Acute pancreatitis without necrosis or infection, unspecified; Z79.4 Long term (current) use of insulin; I10 Essential (primary) hypertension; E11.65 Type 2 diabetes mellitus with hyperglycemia
CPT/HCPCS: 36415; 74177; 76705; 78227; 80053; 80061; 81001; 82150; 83036; 83690; 83735; 85025; 93005; 96365; 96372; 96374; 96375; 99284; A4222; J1170; J1815; J2300; J2405; J3490; J7030; J7050